=== PATIENT | female | born 1955 | race African-American/Black ===

== ENCOUNTER 2017-08-26 22:50 | Emergency (ER) | payer OTHER ==
[~2017-08-26] VITALS: Ht 162.6 cm; Wt 61.2 kg
[~2017-08-26 22:50] MED LIST: ADDERALL 10 MG10 MG ORAL; COLACE100 MG ORAL; COREG25 MG ORAL; DILAUDID2 MG ORAL; EPOGEN20000 UNIT SUBQ; FOLIC ACID1 MG ORAL; HYDRALAZINE HC100 MG ORAL; HYDREA500 MG PO; LIDODERM700 M1 TOPIC; LOVENOX10 M1 SUBQ; MIRALAX17 G2 ORAL; MIRTAZAPINE30 MG ORAL; MULTIVITAMINS1 EAC2 ORAL; NORVASC10 MG ORAL; OXYCONTIN10 MG ORAL; ROXICODONE15 MG ORAL; SENOKOT1 TAB ORAL; SEROQUEL25 MG ORAL; TYLENOL650 MG/20. ORAL; VITAMIN D22000 UNIT PO; VITAMIN E100 UNI3 ORAL; ZANAFLEX4 MG ORAL
[2017-08-26] MEDS ORDERED: ROXICODONE15 MG ORAL (22:53)
[2017-08-26] MEDS ORDERED: DILAUDID1 MG/1 ML PO (22:53)
[2017-08-26 23:00] VITALS: BP 154/77
[2017-08-27 00:26] LABS: ANION GAP 7 mmol/L (5-15); BLOOD UREA NITROGEN 41 mg/dL (7-18); CALCIUM 7.6 MG/DL (8.5-10.1); CARBON DIOXIDE 21 MMOL/L (21-32); CHLORIDE 112 MMOL/L (98-107); POTASSIUM 3.8 MMOL/L (3.5-5.1); SODIUM 140 MMOL/L (136-145)
[2017-08-27 00:29] LABS: HEMATOCRIT 24.2 % (37.0-47.0); HEMOGLOBIN 8.4 G/DL (12.0-16.0); MEAN CORPUSCULAR VOLUME 120 FL (80-99); PLATELET COUNT 205 K/UL (150-450); RED BLOOD COUNT 2.01 M/UL (4.20-5.40); RED CELL DISTRIBUTION WIDTH 29.3 % (11.6-14.8); WHITE BLOOD COUNT 7.4 K/UL (4.8-10.8)
[2017-08-27 00:38] LABS: ALANINE AMINOTRANSFERASE 11 U/L (12-78); ALBUMIN/GLOBULIN RATIO 0.4 (1.0-2.7); ALKALINE PHOSPHATASE 106 U/L (46-116); ASPARTATE AMINO TRANSFERASE 25 U/L (15-37); BILIRUBIN,TOTAL 0.7 MG/DL (0.2-1.0)
[2017-08-27 01:05] VITALS: BP 150/78
[2017-08-27 02:15] VITALS: BP 167/85
--- NOTE | 2017-08-27 02:56 | Emergency Room Report ---
History of Present Illness General Chief Complaint: General Complaint Source: Patient, Medical Record Present Illness HPI Patient is a 62-year-old female who presented after increased right lower extremity pain and swelling. Patient gradual onset of symptoms. Patient had reported prior history of sickle cell disease. She reports having increased pain to the area. She been vomiting. She denied any chest pain. She denied prior cardiac history. Patient states she has SS disease. She denied taking diuretics previously. She reported having increased pain. She states normal hemoglobin is approximately 6. The patient any fever or shortness of breath.She states she normally followed at [facility] Allergies: Coded Allergies: No Known Allergies (Unverified , 11/03/15) Patient History Past Medical History: see triage record Last Menstrual Period: NA Now: No Reviewed Nursing Documentation: PMH: Agreed, PSxH: Agreed Nursing Documentation-PMH Hx Hypertension: Yes - sickle cell Review of Systems All Other Systems: negative except mentioned in HPI Physical Exam Vital Signs Date Time Temp Pulse Resp B/P (MAP) Pulse Ox O2 Delivery O2 Flow Rate FiO2 08/26/17 22:48 98.3 87 18 189/98 97 Room Air 98.2 Sp02 EP Interpretation: reviewed, normal General Appearance: normal inspection, well appearing, no apparent distress, alert, GCS 15, non-toxic Head: atraumatic ENT: normal ENT inspection, hearing grossly normal, normal voice Neck: normal inspection, full range of motion, supple, no bony tend Respiratory: normal inspection, lungs clear, normal breath sounds, no respiratory distress, no retraction, no wheezing Cardiovascular #1: regular rate, rhythm, edema Gastrointestinal: normal inspection, normal bowel sounds, non tender, soft, no guarding, no hernia Genitourinary: no CVA tenderness Musculoskeletal: normal inspection, back normal, normal range of motion Neurologic: normal inspection, alert, oriented x3, responsive, traffic court magistrate III-XII nml as tested, speech normal Psychiatric: normal inspection, judgement/insight normal, mood/affect normal Skin: normal inspection, normal color, no rash Medical Decision Making Diagnostic Impression: Primary Impression: Sickle cell pain crisis Additional Impressions: CHF (congestive heart failure) Renal insufficiency ER Course Patient presented for sickle cell pain. Differential diagnosis included but was not limited to have sickle cell pain crisis, aplastic crisis, sequestration , osteomyelitis, acute chest syndrome, CHF among others. Because of complexity of patient's case laboratory testing and imaging studies were ordered. EKG interpreted by me showed normal sinus rhythm with a rate of [address] or T wave changes. The patient given Dilaudid for pain. She was noted to be somewhat edematous was given IV Lasix. A left her testing was notable for renal insufficiency as well as adequate hemoglobin . The patient was discussed with [facility] physician for [facility] who agreed accept patient in transfer. The patient was given additional dose of pain medications after discussion with [facility] physician. Labs Test 08/26/17 23:54 White Blood Count 7.4 K/UL (4.8-10.8) Red Blood Count 2.01 M/UL (4.20-5.40) Hemoglobin 8.4 G/DL (12.0-16.0) Hematocrit 24.2 % (37.0-47.0) Mean Corpuscular Volume 120 FL (80-99) Mean Corpuscular Hemoglobin 41.9 PG (27.0-31.0) Mean Corpuscular Hemoglobin Concent 34.8 G/DL (32.0-36.0) Red Cell Distribution Width 29.3 % (11.6-14.8) Platelet Count 205 K/UL (150-450) Mean Platelet Volume 9.8 FL (6.5-10.1) Neutrophils (%) (Auto) % (45.0-75.0) Lymphocytes (%) (Auto) % (20.0-45.0) Monocytes (%) (Auto) % (1.0-10.0) Eosinophils (%) (Auto) % (0.0-3.0) Basophils (%) (Auto) % (0.0-2.0) Differential Total Cells Counted 100 Neutrophils % (Manual) 73 % (45-75) Lymphocytes % (Manual) 16 % (20-45) Monocytes % (Manual) 11 % (1-10) Eosinophils % (Manual) 0 % (0-3) Basophils % (Manual) 0 % (0-2) Band Neutrophils 0 % (0-8) Nucleated Red Blood Cells 21 /100 WBC Platelet Estimate Adequate Platelet Morphology Normal Anisocytosis 2+ Microcytosis 1+ Macrocytosis 2+ Target Cells 1+ Acanthocytes 1+ Schistocytes 1+ Reticulocyte Count 1.1 % (0.0-2.0) Sodium Level 140 MMOL/L (136-145) Potassium Level 3.8 MMOL/L (3.5-5.1) Chloride Level 112 MMOL/L (98-107) Carbon Dioxide Level 21 MMOL/L (21-32) Anion Gap 7 mmol/L (5-15) Blood Urea Nitrogen 41 mg/dL (7-18) Creatinine 3.0 MG/DL (0.55-1.30) Estimat Glomerular Filtration Rate 19.4 mL/min (>60) Glucose Level 127 MG/DL (74-106) Calcium Level 7.6 MG/DL (8.5-10.1) Total Bilirubin 0.7 MG/DL (0.2-1.0) Aspartate Amino Transf (AST/SGOT) 25 U/L (15-37) Alanine Aminotransferase (ALT/SGPT) 11 U/L (12-78) Alkaline Phosphatase 106 U/L (46-116) Troponin I 0.007 ng/mL (0.000-0.056) Pro-B-Type Natriuretic Peptide 8144 pg/mL (0-125) Total Protein 7.2 G/DL (6.4-8.2) Albumin 2.0 G/DL (3.4-5.0) Globulin 5.2 g/dL Albumin/Globulin Ratio 0.4 (1.0-2.7) Last Vital Signs Date Time Temp Pulse Resp B/P (MAP) Pulse Ox O2 Delivery O2 Flow Rate FiO2 08/27/17 02:28 98.2 08/27/17 02:15 74 12 167/85 100 Room Air Status: improved Disposition: XFER SHT-TRM HOSP Condition: Stable [facility] [place] Aug 27, 2017 02:56
[2017-08-27 03:11] VITALS: BP 167/85
--- NOTE | 2017-09-07 16:48 | Cardiology Report ---
APPROVED REPORT EKG Measurement Heart [id number] OH 140P39 [id number] Normal sinus rhythm Left anterior fascicular block Left ventricular hypertrophy with repolarization abnormality Abnormal ECG
== END 2017-08-27 03:24 | disposition short-term general hospital (02) ==
LOC: EDBD 22:50 → EMR 23:11 → EDBEDREQSVC 08-27 02:09 → EDBEDREQ 08-27 02:09 → EMR 08-27 03:24
DX: D57.00 Hb-SS disease with crisis, unspecified (principal); M79.604 Pain in right leg; I11.0 Hypertensive heart disease with heart failure; I50.9 Heart failure, unspecified; N28.9 Disorder of kidney and ureter, unspecified
CPT/HCPCS: 36415; 80053; 83880; 84484; 85007; 85025; 85044; 86850; 86870; 86900; 86901; 93005; 96374; 96375; 99285; J1170; J1940